=== PATIENT | male | born 1980 | race Caucasian/White ===

== ENCOUNTER 2017-08-26 07:12 | Emergency (ER) | payer BC ==
--- NOTE | 2017-08-26 07:25 | UC ---
Throat Pain/Nasal Ajith HPI - HPI Summary HPI Summary: Sinus congestion, cough, cold symptoms for about 10 days. Not improving with nasal irrigation and decongestants. Feels like prior sinus infection. No recent fever. There is sinus pain. - History of Current Complaint Stated Complaint: SINUSES Time Seen by Provider: 08/26/17 07:16 Hx Obtained From: Patient Onset/Duration: Gradual Onset, Lasting Days Severity: Moderate Cough: Nonproductive Associated Signs & Symptoms: Positive: Sinus Discomfort. Negative: Dysphagia, FB Sensation, Drooling, Wheezing, Hoarseness, Fever, Vomiting, Rash - Epiglottits Risk Factors Epiglottis Risk Factors: Negative - Allergies/Home Medications Allergies/Adverse Reactions: Allergies Allergy/AdvReac Type Severity Reaction Status Date / Time Cephalosporins Allergy Rash Verified 05/31/15 17:02 Clarithromycin [From Biaxin] Allergy Rash Verified 05/31/15 17:02 Doxycycline Allergy Rash Verified 05/31/15 17:02 Salmeterol [From Serevent] Allergy Rash Verified 05/31/15 17:02 seasonal allergies Allergy Sneezing Uncoded 05/31/15 17:02 PMH/Surg Hx/FS Hx/Imm Hx Previously Healthy: No - allergy to cephalosporins but states pcn is fine. - Surgical History Surgical History: Yes Surgery Procedure, Year, and Place: Appy at age 16 yrs. T/a at age 15 yrs - Family History Known Family History: Positive: Other - no related sinus disease history. - Social History Occupation: Employed Full-time Alcohol Use: Occasionally Substance Use Type: None Smoking Status (MU): Never Smoked Tobacco Review of Systems ENT: Sinus Congestion, Sinus Pain/Tenderness Respiratory: Cough All Other Systems Reviewed And Are Negative: Yes Physical Exam Triage Information Reviewed: Yes Appearance: Well-Appearing, No Pain Distress, Well-Nourished Vital Signs Reviewed: Yes ENT: Positive: Normal ENT inspection, Hearing grossly normal, Pharynx normal, Nasal congestion, TMs normal, Sinus tenderness, Uvula midline. Negative: Pharyngeal erythema, Hoarse voice Neck: Positive: Supple, Nontender, No Lymphadenopathy Respiratory: Positive: Chest non-tender, Lungs clear, Normal breath sounds, No respiratory distress, No accessory muscle use. Negative: Respiratory distress, Decreased breath sounds, Accessory muscle use, Crackles, Rhonchi, Stridor Cardiovascular: Positive: RRR, No Murmur, Pulses Normal Abdomen Description: Positive: Nontender, No Organomegaly, Soft. Negative: Distended, Guarding Neurological: Positive: Alert, Muscle Tone Normal. Negative: Fatigued Skin: Negative: rashes Throat Pain/Nasal Course/Dx - Differential Dx/Diagnosis Provider Diagnoses: sinusitis Discharge - Discharge Plan Condition: Good Disposition: HOME Prescriptions: Amoxicillin PO (*) [Amoxicillin 500 MG CAP*] 500 mg PO TID #30 cap Patient Education Materials: Sinusitis (ED) Referrals: Adriana Forbes MD [Primary Care Provider] -
[2017-08-26 07:29] VITALS: BP 132/82
== END 2017-08-26 07:31 | disposition home or self-care (01) ==
LOC: UCCORT 07:12
DX: J32.9 Chronic sinusitis, unspecified (principal); Z88.1 Allergy status to other antibiotic agents
CPT/HCPCS: 99212; G0463